=== PATIENT | male | born 1945 | race Hispanic/Latino ===

== ENCOUNTER → 2019-07-31 | Day surgery (SDC) | payer MEDICARE, OTHER ==
[2019-07-29 11:09] LABS: BASOPHILS % 0.7 % (0.0-1.0); EOSINOPHILS # (AUTO) 0.1 (0.0-0.4); HEMATOCRIT 44.6 % (38.2-49.6); HEMOGLOBIN 14.7 g/dL (14.0-18.0); LYMPHOCYTES # (AUTO) 1.5 (1.0-3.2); LYMPHOCYTES % 24.9 % (18.0-39.1); MEAN CORPUSCULAR HEMOGLOBIN 30.8 pg (28-32); MEAN CORPUSCULAR VOLUME 93.5 fL (81-99); MONOCYTES # (AUTO) 0.6 (0.2-0.8); MONOCYTES % 10.6 % (4.4-11.3); NEUTROPHILS # (AUTO) 3.8 (2.1-6.9); NEUTROPHILS % 62.6 % (38.7-80.0); PLATELET COUNT 212 x10e3/uL (140-360); RED BLOOD COUNT 4.77 x10e6/uL (4.3-5.7); RED CELL DISTRIBUTION WIDTH 12.1 % (11.7-14.4)
[~2019-07-31] MED LIST: ATORVASTATIN CA10 MG PO; FLOMAX0.4 MG PO; GLUCAGON FOR INJ 1 MG VIAL ONE; HYOSCYAMINE 0.125 MG TAB ONE; NAMENDA10 MG PO; PROPOFOL IV EMULSION 10 MG/ML 50 ML VIAL ONE
--- OUTSIDE RECORDS SUMMARY | 2019-07-31 06:06 | XMS REPORT | Summary of Care ---
Author Author [facility] Organization [facility] Address Unknown Phone Unavailable Encounter HQ Encntr_alias(FIN) [id number] Date(s): 12/21/16 - 12/21/16 [facility] [address] [place] [address]- [phone] Discharge Disposition: Home or Self Care Attending Physician: Omaira Albrecht MD Vital Signs No data available for this section Problem List No data available for this section Allergies, Adverse Reactions, Alerts No data available for this section Medications No data available for this section Results No data available for this section Immunizations No data available for this section Procedures No data available for this section Social History No data available for this section Assessment and Plan No data available for this section
--- OUTSIDE RECORDS SUMMARY | 2019-07-31 06:06 | XMS REPORT | Summary of Care ---
Author Author [facility] Organization [facility] Address Unknown Phone Unavailable Encounter STACIE Thompson(FIN) [id number] Date(s): 07/23/18 - 07/23/18 [facility] [address] [place] [address]- Discharge Disposition: Home or Self Care Attending Physician: Dali Broussard MD Vital Signs Most recent to 1 oldest [Reference Range]: Height 160.02 cm (07/23/18 9:14 AM) Temperature Oral 98.3 DegF [96.4-99.1 DegF] (07/23/18 9:14 AM) Blood Pressure 112/71 mmHg [90-140/60-90 mmHg] (07/23/18 9:14 AM) Respiratory Rate 14 BRMIN [14-20 BRMIN] (07/23/18 9:14 AM) Peripheral Pulse 97 bpm Rate [60-100 bpm] (07/23/18 9:14 AM) Weight 70.909 kg (07/23/18 9:14 AM) Body Mass Index 27.69 m2 (07/23/18 9:14 AM) Problem List Condition Effective Dates Status Health Status Informant BPH associated with Active nocturia(Confirmed) Pain in both Active feet(Confirmed) Hemorrhoids(Confirme Active d) Low back Active pain(Confirmed) Mixed Active hyperlipidemia(Confi rmed) Occult blood Active positive stool(Confirmed) Prediabetes(Confirme Active d) Rectal Active bleeding(Confirmed) Allergies, Adverse Reactions, Alerts Substance Reaction Severity Status NKDA Active Medications atorvastatin 10 mg oral tablet 10 mg=1 tab, PO, Bedtime, # 90 tab, 1 Refill(s), Pharmacy: [facility] [id number] Start Date: 07/23/18 Stop Date: 01/19/19 Status: Ordered tamsulosin 0.4 mg oral capsule 0.4 mg=1 cap, PO, BID, # 180 cap, 1 Refill(s), Pharmacy: [facility] [id number] Start Date: 07/23/18 Stop Date: 01/19/19 Status: Ordered Results No data available for this section Immunizations No data available for this section Procedures Procedure Date Related Diagnosis Body Site Status Screening colonoscopy1 03/29/16 Completed 1Normal colonoscopy Repeat in 2025 Social History Social History Type Response Substance Abuse Use: None. Alcohol Never Smoking Status Never smoker; Exposure to Tobacco Smoke None; Cigarette Smoking Last 365 Days No; Reg Smoking Cessation Counseling No entered on: 07/23/18 Assessment and Plan No data available for this section
--- OUTSIDE RECORDS SUMMARY | 2019-07-31 06:06 | XMS REPORT | Continuity of Care Document ---
Author Author [facility] Organization [facility] Address Unknown Phone Unavailable Care Team Providers Care Loan Representative Name Role Phone [email or web address] Unavailable Unavailable Problems Problem Status Onset Date Classification Date Reported Comments Source Pain in left foot 08/22/2018 03/05/2019 [facility] Primary osteoarthritis, left ankle and foot 03/05/2019 [facility] Benign prostatic hypertroph with outflow obstruction (disorder) Active Problem 03/05/2019 [facility] Foot pain (finding) Active Problem 03/05/2019 [facility] Hemorrhoids (disorder) Active Problem 03/05/2019 [facility] Low back pain (disorder) Active Problem 03/05/2019 [facility] Mixed hyperlipidemia (disorder) Active Problem 03/05/2019 [facility] Occult blood in stools (disorder) Active Problem 03/05/2019 [facility] Prediabetes (finding) Active Problem 03/05/2019 [facility] Rectal hemorrhage (disorder) Active Problem 03/05/2019 [facility] Medications Medication Details Route Status Patient Instructions Ordering Provider Order Date Source atorvastatin 10 mg oral tablet 10 mg=1 tab, PO, Bedtime, # 90 tab, 1 Refill(s), Pharmacy: [facility] [id number] Active 07/23/2018 [facility] tamsulosin 0.4 mg oral capsule 0.4 mg=1 cap, PO, BID, # 180 cap, 1 Refill(s), Pharmacy: [facility] [id number] Active 07/23/2018 [facility] atorvastatin 20 mg oral tablet 20 mg=1 tab, PO, Bedtime, # 90 tab, 1 Refill(s), Pharmacy: [facility] [id number] No Longer Active 07/16/2018 [facility] tamsulosin 0.4 mg oral capsule 0.4 mg=1 cap, PO, Daily, # 90 cap, 1 Refill(s), Pharmacy: [facility] [id number] No Longer Active 07/16/2018 [facility] tamsulosin 0.4 mg oral capsule 0.4 mg=1 cap, PO, Daily, # 90 cap, 0 Refill(s) Inactive 07/16/2018 [facility] 24 HR mirabegron 50 MG Extended Release Tablet [Myrbetriq] 50 mg=1 tab, PO, Daily, # 30 tab, 0 Refill(s) Active 07/16/2018 [facility] atorvastatin 20 mg oral tablet 20 mg=1 tab, PO, Bedtime, # 90 tab, 1 Refill(s) Inactive 07/16/2018 [facility] Allergies, Adverse Reactions, Alerts Substance Category Reaction Severity Reaction type Status Date Reported Comments Source No Known Medication Allergies Assertion Drug allergy OPIJacinto Fuentes Immunizations No Data Provided for This Section Results No Data Provided for This Section Pathology Reports No Data Provided for This Section Diagnostic Reports Report Value Date Source Foot series DX Exam: Foot series DX, left, 3 views Reason for Exam: - M79.672 Pain in left foot Comparison Exam: None Discussion: No fractures or dislocations are seen of the left foot. Mild osteoarthritis seen within the first MTP joint. No intraosseous lesions. Small inferior calcaneal enthesophyte. No radiopaque foreign bodies. Impression: 1. No acute bony abnormalities seen within the left foot. 08/16/2018 [facility] Spine lumbar series DX EXAMINATION: Lumbar spine series HISTORY: Lumbar spondylosis FINDINGS: Frontal, lateral, bilateral oblique, and coned views of the lumbar spine are performed without comparison. There is no listhesis of the lumbar spine. The vertebral body heights are normal without compression fracture. There is minimal intervertebral disc space narrowing at L4-L5. The remaining intervertebral disc spaces are preserved, although there is mild multilevel degenerative endplate spur formation. There are no pars interarticularis defects. The sacral ala appear intact. IMPRESSION: 1. Minimal L4-L5 degenerative disc disease with intervertebral disc space narrowing. The remaining intervertebral disc spaces are preserved, although there is mild multilevel degenerative endplate spur formation within the lumbar spine. 12/21/2016 [facility] Fuentes Consultation Notes No Data Provided for This Section Discharge Summaries No Data Provided for This Section History and Physicals No Data Provided for This Section Vital Signs Vital Sign Value Date Comments Source Weight 70.909 07/23/2018 [facility] Height 160.02 cm 07/23/2018 [facility] BMI Calculated 27.69 07/23/2018 [facility] Respitory Rate 14 07/23/2018 [facility] Heart Rate 97 07/23/2018 [facility] Temperature Oral (F) 98.3 F 07/23/2018 [facility] Systolic (mm Hg) 112 07/23/2018 [facility] Diastolic (mm Hg) 71 07/23/2018 [facility] Weight 71.08 07/16/2018 [facility] BMI Calculated 27.76 07/16/2018 [facility] Height 160.02 cm 07/16/2018 [facility] Respitory Rate 14 07/16/2018 [facility] Temperature Oral (F) 98.8 F 07/16/2018 [facility] Heart Rate 98 07/16/2018 [facility] Systolic (mm Hg) 127 07/16/2018 [facility] Diastolic (mm Hg) 75 07/16/2018 [facility] Encounters Location Location Details Encounter Type Encounter Number Reason For Visit Attending Provider ADM Date DC Date Status Source [facility] [place] [facility] [id number] Omaira Albrecht 12/21/2016 12/22/2016 [facility] Outpatient [id number] DALI VARGAS 07/16/2018 [facility] Outpatient [id number] Dali Biggs 07/16/2018 07/17/2018 [facility] [id number] DALI VARGAS 07/23/2018 [facility] Outpatient [id number] Dali Biggs 07/23/2018 07/24/2018 [facility] [place] [facility] [id number] Edie Kendall 08/16/2018 08/17/2018 [facility] Procedures Procedure Code Date Perfomer Comments Source Screening colonoscopy<sup>1</sup> [id number] 03/29/2016 Normal colonoscopy Repeat in 2025 [facility] [place] Assessment and Plan No Data Provided for This Section Plan of Care No Data Provided for This Section Social History Social History Date Source Social History TypeResponse Substance Abuse Use: None. Alcohol Never Smoking Status Never smoker; Exposure to Tobacco Smoke None; Cigarette Smoking Last 365 Days No; Reg Smoking Cessation Counseling No entered on: 07/23/18 07/16/2018 [facility] Social History TypeResponse Substance Abuse Use: None. Alcohol Never Smoking Status Never smoker; Exposure to Tobacco Smoke None; Cigarette Smoking Last 365 Days No; Reg Smoking Cessation Counseling No entered on: 07/23/18 07/16/2018 [facility] Family History No Data Provided for This Section Advance Directives No Data Provided for This Section Functional Status No Data Provided for This Section
--- OUTSIDE RECORDS SUMMARY | 2019-07-31 06:06 | XMS REPORT | Summary of Care ---
Author Author [facility] [place] Organization [facility] [place] Address Unknown Phone Unavailable Encounter HQ Encntr_jose g(FIN) [id number] Date(s): 08/16/18 - 08/16/18 [facility] [place] [address], [place] [address] [phone] Encounter Diagnosis Pain in left foot (Final) - 08/22/18 Primary osteoarthritis, left ankle and foot (Final) - Discharge Disposition: Home or Self Care Attending Physician: Edie Kendall MD Referring Physician: Edie Kendall MD Vital Signs No data available for this section Problem List Condition Effective Dates Status Health Status Informant BPH associated with Active nocturia(Confirmed) Pain in both Active feet(Confirmed) Hemorrhoids(Confirme Active d) Low back Active pain(Confirmed) Mixed Active hyperlipidemia(Confi rmed) Occult blood Active positive stool(Confirmed) Prediabetes(Confirme Active d) Rectal Active bleeding(Confirmed) Allergies, Adverse Reactions, Alerts No Known Medication Allergies Medications No data available for this section [...]
--- OUTSIDE RECORDS SUMMARY | 2019-07-31 06:06 | XMS REPORT | Summary of Care ---
Author Author [facility] Organization [facility] Address Unknown Phone Unavailable Encounter STACIE Thompson(FIN) [id number] Date(s): 07/16/18 - 07/16/18 [facility] [address] [place] [address]- Discharge Disposition: Home or Self Care Attending Physician: Dali Broussard MD Vital Signs Most recent to 1 oldest [Reference Range]: Height 160.02 cm (07/16/18 11:03 AM) Temperature Oral 98.8 DegF [96.4-99.1 DegF] (07/16/18 11:03 AM) Blood Pressure 127/75 mmHg [90-140/60-90 mmHg] (07/16/18 11:03 AM) Respiratory Rate 14 BRMIN [14-20 BRMIN] (07/16/18 11:03 AM) Peripheral Pulse 98 bpm Rate [60-100 bpm] (07/16/18 11:03 AM) Weight 71.08 kg (07/16/18 11:03 AM) Body Mass Index 27.76 m2 (07/16/18 11:03 AM) Problem List Condition Effective Dates Status Health Status Informant BPH associated with Active nocturia(Confirmed) Pain in both Active feet(Confirmed) Hemorrhoids(Confirme Active d) Low back Active pain(Confirmed) Mixed Active hyperlipidemia(Confi rmed) Occult blood Active positive stool(Confirmed) Prediabetes(Confirme Active d) Rectal Active bleeding(Confirmed) Allergies, Adverse Reactions, Alerts Substance Reaction Severity Status NKDA Active Medications atorvastatin 20 mg oral tablet 20 mg=1 tab, PO, Bedtime, # 90 tab, 1 Refill(s), Pharmacy: [facility] [id number] Start Date: 07/16/18 Stop Date: 07/23/18 Status: Discontinued atorvastatin 20 mg oral tablet 20 mg=1 tab, PO, Bedtime, # 90 tab, 1 Refill(s) Start Date: 07/16/18 Stop Date: 07/16/18 Status: Discontinued Myrbetriq 50 mg oral tablet, extended release 50 mg=1 tab, PO, Daily, # 30 tab, 0 Refill(s) Start Date: 07/16/18 Status: Ordered tamsulosin 0.4 mg oral capsule 0.4 mg=1 cap, PO, Daily, # 90 cap, 1 Refill(s), Pharmacy: [facility] [id number] Start Date: 07/16/18 Stop Date: 07/23/18 Status: Discontinued tamsulosin 0.4 mg oral capsule 0.4 mg=1 cap, PO, Daily, # 90 cap, 0 Refill(s) Start Date: 07/16/18 Stop Date: 07/16/18 Status: Discontinued Results No data available for this section [...]
--- OUTSIDE RECORDS SUMMARY | 2019-07-31 06:06 | XMS REPORT | Summary of Care ---
Author Author [facility] Organization [facility] Address Unknown Phone Unavailable Encounter STACIE Thompson(FIN) [id number] Date(s): 07/16/18 - 07/16/18 [facility] [address] [place], [place] [address]- [phone] Discharge Disposition: Home or Self Care Attending [...] Bedtime, # 90 tab, 1 Refill(s), Pharmacy: [facility] [id number] Start Date: 07/16/18 Stop Date: 07/23/18 Status: [...] Daily, # 90 cap, 1 Refill(s), Pharmacy: [facility] [id number] Start Date: 07/16/18 Stop Date: 07/23/18 Status: [...]
[2019-07-31 09:25] VITALS: BP 123/79
--- NOTE | 2019-07-31 15:59 | Operative Report ---
DATE OF PROCEDURE: 07/31/2019 SURGEON: Adin Pastor MD PROCEDURE: Colonoscopy with polypectomy. INDICATIONS FOR COLONOSCOPY: Bloody stools. MEDICATIONS: The patient was done under MAC, please see anesthesiologist's note. PROCEDURE IN DETAIL: With the patient in left lateral decubitus position, a flexible fiberoptic Olympus colonoscope was inserted into the rectum with ease and advanced all the way to the cecum. A minute polyp was removed in the cecum by the cold biopsy forceps. An approximately 6 mm sessile polyp was removed per cold polypectomy snare and site was hemoclipped x2. The ascending colon, transverse, descending, and sigmoid appeared to be within normal limits. There was some prominent nodularity in the rectum, primarily in the distal rectum and then biopsies were obtained. The scope was then retroflexed into the distal rectum and moderate-sized internal hemorrhoids were noted, none of which was actively bleeding. The scope was then straightened out, it was subsequently withdrawn, and the patient tolerated the procedure well. IMPRESSION: 1. Cecal polyps x2, one removed per cold biopsy forceps and the other one was removed per cold snare polypectomy and site was hemoclipped x2. 2. Prominent nodularity rectal mucosa, biopsies obtained. 3. Internal hemorrhoids, none actively bleeding. PLAN: Follow up histology. Initiate high-fiber, low-fat diet. Initiate high-fiber supplement. Anusol-HC suppository b.i.d. x10 days and p.r.n. The patient might benefit from a followup colonoscopy in 5 years. Adin Pastor MD [facility] [place] /[id number] cc: Katie Burks MD
== END | disposition home or self-care (01) ==
LOC: OR 05:57
PROVIDERS: ATTEND Internal Medicine Gastroenterology
DX: K92.1 Melena (principal); D12.0 Benign neoplasm of cecum; K64.8 Other hemorrhoids; K62.89 Other specified diseases of anus and rectum; E78.00 Pure hypercholesterolemia, unspecified; F03.90 Unspecified dementia, unspecified severity, without behavioral disturbance, psychotic disturbance, mood disturbance, and anxiety; H91.90 Unspecified hearing loss, unspecified ear; N40.0 Benign prostatic hyperplasia without lower urinary tract symptoms; Z01.810 Encounter for preprocedural cardiovascular examination; Z01.812 Encounter for preprocedural laboratory examination
CPT/HCPCS: 36415; 45380; 45385; 85025; 93005; J1610; J2704; 45378; 45384

== ENCOUNTER → 2020-12-28 | Day surgery (SDC) | payer MEDICARE ==
[2020-12-24 14:28] LABS: BASOPHILS % 0.7 % (0.0-1.0); EOSINOPHILS # (AUTO) 0.1 (0.0-0.4); EOSINOPHILS % 1.1 % (0.0-6.0); HEMATOCRIT 38.8 % (38.2-49.6); HEMOGLOBIN 12.9 g/dL (14.0-18.0); LYMPHOCYTES # (AUTO) 1.1 (1.0-3.2); LYMPHOCYTES % 20.1 % (18.0-39.1); MEAN CORPUSCULAR HGB CONC 33.2 g/dL (31-35); MEAN CORPUSCULAR VOLUME 93.3 fL (81-99); MONOCYTES # (AUTO) 0.7 (0.2-0.8); NEUTROPHILS # (AUTO) 3.7 (2.1-6.9); NEUTROPHILS % 64.9 % (38.7-80.0); PLATELET COUNT 170 x10e3/uL (140-360); RED BLOOD COUNT 4.16 x10e6/uL (4.3-5.7); RED CELL DISTRIBUTION WIDTH 12.9 % (11.7-14.4)
[~2020-12-28] MED LIST changes: +FENTANYL CITRATE/PF 100MCG/2 ML INJ ONE; -GLUCAGON FOR INJ 1 MG VIAL ONE; -HYOSCYAMINE 0.125 MG TAB ONE; +LIDOCAINE HCL 2% LOCAL INJ 5 ML SDV VIAL INJ ONE; +MIDAZOLAM HCL 2 MG/2 ML VIAL ONE; +PANTOPRAZOLE SO40 MG PO; +PHENYLEPHRINE HCL 1% 10 MG/ML VIAL ONE; +PROPOFOL IV EMULSION 10 MG/ML 20 ML VIAL ONE; -PROPOFOL IV EMULSION 10 MG/ML 50 ML VIAL ONE; +VIT C PO; +VIT D3 PO
[2020-12-28 13:35] VITALS: BP 124/85
[2020-12-28 13:50] LABS: INR 1.06; PROTHROMBIN TIME 14.5 seconds (11.9-14.5)
[2020-12-28 13:57] LABS: ALANINE AMINOTRANSFERASE 14 IU/L (0-55); ALBUMIN 3.4 g/dL (3.5-5.0); ALBUMIN/GLOBULIN RATIO 1.3 (0.8-2.0); ALKALINE PHOSPHATASE 71 IU/L (40-150); ANION GAP 10.9 mmol/L (8-16); BLOOD UREA NITROGEN 9 mg/dL (7-26); BUN/CREATININE RATIO 10 (6-25); CALCIUM 8.3 mg/dL (8.4-10.2); CARBON DIOXIDE 24 mmol/L (22-29); CHLORIDE 110 mmol/L (98-107); CREATININE, SERUM 0.86 mg/dL (0.72-1.25); EST GLOMERULAR FILTRATION RATE > 60 ML/MIN (60-); GLUCOSE 91 mg/dL (74-118); POTASSIUM 3.9 mmol/L (3.5-5.1); SODIUM 141 mmol/L (136-145)
== END | disposition home or self-care (01) ==
LOC: OR 10:26
PROVIDERS: ATTEND Internal Medicine Gastroenterology
DX: K29.50 Unspecified chronic gastritis without bleeding (principal); K62.1 Rectal polyp; B96.81 Helicobacter pylori [H. pylori] as the cause of diseases classified elsewhere; K44.9 Diaphragmatic hernia without obstruction or gangrene; K21.00 Gastro-esophageal reflux disease with esophagitis, without bleeding; K64.8 Other hemorrhoids; E78.5 Hyperlipidemia, unspecified; N40.0 Benign prostatic hyperplasia without lower urinary tract symptoms; Z01.810 Encounter for preprocedural cardiovascular examination; Z01.812 Encounter for preprocedural laboratory examination; Z20.822 Contact with and (suspected) exposure to COVID-19; Z68.27 Body mass index [BMI] 27.0-27.9, adult; Z86.010 Personal history of colon polyps
CPT/HCPCS: 36415 ×2; 43239; 45384; 80053; 85025; 85610; 93005; J2001; J2370; J2704; U0002; 45378; J2250; J3010